=== PATIENT | male | born 1965 | race Caucasian/White ===

== ENCOUNTER 2016-12-16 07:29 | Day surgery (SDC) | payer OTHER ==
[~2016-12-16 07:29] MED LIST: LACTATED RINGERS 1,000 ML IV SCH
[2016-12-16] MEDS ORDERED: IV START KIT ONE (07:31)
[2016-12-16] MEDS ORDERED: LACTATED RINGERS 1,000 ML ONE (07:31)
[2016-12-16] MEDS ORDERED: FENTANYL 100 MCG/2 ML VIAL ONE (08:47)
[2016-12-16] MEDS ORDERED: PROPOFOL 40 ML IV ONE (08:47)
[2016-12-16 14:51] LABS: HELICOBACTER PYLORII DETECTION NEGATIVE (NEGATIVE)
--- NOTE | 2016-12-20 08:54 | SURGPATH ---
[facility] [address] [place] [id number] Patient Name: FAHEEM FLORES MR#: [id number] : 1965 Gender: M Specimen #: [id number] Collected: 12/16/2016 Received: 12/17/2016 Reported: 12/20/2016 Submitting Phys: DAVID SNEED Copy To Phys: TODD SAUCEDO [facility] Clinical History / Pre-Operative Diagnosis: Dysphagia, heartburn, history of colon polyps, rectal bleeding, family history of colon cancer, rule out gastritis Specimen Source / Surgical Procedure Performed: Antral biopsy Interpretation: GASTRIC ANTRUM, BIOPSY: - NO PATHOLOGIC ABNORMALITIES Electronically Signed Out Zachary Frank M.D. Gross Description: The specimen is received in formalin labeled with the patient's name and "antrum". The specimen consists of two fragments of mehta soft tissue, 0.9 x 0.3 x 0.2 cm in aggregate. Submitted in toto in one cassette. CARTER Roth Microscopic Description: The sections show fragments of gastric mucosa exhibiting a normal architectural pattern. There are no inflammatory or neoplastic features and there are no Helicobacter-like organisms identified. 1: [id number] R47.02
== END 2016-12-16 10:00 | disposition home or self-care (01) ==
LOC: SDC 07:29
PROVIDERS: ATTEND Internal Medicine Gastroenterology
PROC: 0DJD8ZZ Inspection of Lower Intestinal Tract, Via Natural or Artificial Opening Endoscopic (ICD-10-PCS; principal; 2016-12-16)
PROC: 0DB68ZX Excision of Stomach, Via Natural or Artificial Opening Endoscopic, Diagnostic (ICD-10-PCS; 2016-12-16)
DX: K29.70 Gastritis, unspecified, without bleeding (principal); K29.80 Duodenitis without bleeding; Z12.11 Encounter for screening for malignant neoplasm of colon; K57.30 Diverticulosis of large intestine without perforation or abscess without bleeding; Z86.010 Personal history of colon polyps; Z80.0 Family history of malignant neoplasm of digestive organs; G47.33 Obstructive sleep apnea (adult) (pediatric); I10 Essential (primary) hypertension; Z88.8 Allergy status to other drugs, medicaments and biological substances; Z88.1 Allergy status to other antibiotic agents
CPT/HCPCS: 87081; 45378; 43239; J3010; J7120